=== PATIENT | female | born 1975 | race Caucasian/White ===

== ENCOUNTER 2016-05-12 02:03 | Emergency (ER) | payer BC ==
--- NOTE | 2016-05-12 03:15 | ED NURSING NOTES ---
Clinical Report - Nurses [facility] [address] [place] [address] 05/12/2016 2:06 Patient: TERESA CRANDALL TRIAGE Triage time 02:12. Acuity: LEVEL 4. Chief Complaint: RIGHT EAR PAIN. Alert. No acute distress. --02:17 ToncedB R.N. 02:12 05/12/16. BP: 119/83. HR: 84. RR: 16. O2 saturation: 98%. Temp: 98.0 F. Pain level now 0/10. --02:17 Tiffanie R.N. Weight: 72.5 kg. Height/Length: 70 inches. BMI: 22.9. --02:14 Tiffanie R.N. Allergies No Known Drug Allergy. --02:12 Tiffanie R.N. Albuterol. --02:13 Tiffanie R.N. History Arrived by private vehicle. Historian: patient. This started today. She has had a nasal discharge, a sore throat and a headache. 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 PAST MEDICAL HX: Immunizations: up-to-date. Last normal menstrual period- 1 for days. SOCIAL HX: Never smoker. No alcohol use or drug use. No infectious disease exposure. SELF HARM ASSESSMENT: A self harm assessment was performed. The patient answered "no" to the question "Have you recently felt down, depressed, or hopeless?", "Have you noticed less interest or pleasure in doing things?", "Do you have thoughts of harming or killing yourself?", "Are you here because you tried to hurt yourself?", "Have you ever tried to hurt yourself before today?", "Have you recently had thoughts about harming or killing others?" and "Do you have any dangerous items in your possession?". FALL RISK ASSESSMENT: Fall risk assessment completed. No fall risk identified. NUTRITIONAL RISK ASSESSMENT: The nutritional risk assessment revealed no deficiencies. FUNCTIONAL ASSESSMENT: Functional assessment: no impairments noted. LEARNING NEEDS ASSESSMENT: The learning needs assessment revealed no barriers. SKIN INTEGRITY ASSESSMENT: Skin integrity risk assessment completed. No skin integrity risk identified. --: Farhan Moreno PROBLEMS: Asthma. --: Michael Moreno. ADDITIONAL SURGERIES: Wrist. --02: Farhan Moreno Interventions ID band on patient. To treatment room. --: Farhan Moreno PHYSICAL ASSESSMENT GENERAL / NEURO / PSYCH: Alert. Appears in no acute distress. HEENT: No facial asymmetry noted. Pupils equal, round and reactive to light. EOM intact. Right ear within normal limits. Left ear within normal limits. Nares within normal limits. Pharynx within normal limits. RESPIRATORY: Respirations not labored. CVS: Capillary refill less than 2 seconds. SKIN: Skin is warm and dry. --: Farhan Moreno DISPOSITION / DISCHARGE Condition at departure: unchanged. No learning barriers present. Discharge instructions provided and reviewed with the patient. Reviewed medication(s) side effects, precautions, dosing and course information. Prescription(s) given to the patient. Patient verbalized understanding. Written instructions provided in Yi. The patient was discharged by the physician. She was discharged home. She left the Emergency Department ambulatory and via private vehicle. Patient driving. FALL RISK ASSESSMENT: Fall risk assessment completed. No fall risk identified. --03:24 Farhan Moreno 03:23 05/12/16. BP: deferred. HR: deferred. RR: deferred. O2 saturation: deferred. Temp: deferred. Pain level now: 0/10. --:24 Farhan Moreno Departure time: 03:24. --03:24 Farhan Moreno Locked/Released at 05/13/2016 19:58 by Farhan Moreno
--- NOTE | 2016-05-12 03:15 | ED CLINICAL REPORT ---
Clinical Report - Physicians/Mid Levels [facility] [address] [place] [address] 05/12/2016 2:06 Patient: TERESA CRANDALL Time Seen: 02:38. Arrived- By private vehicle. Historian- patient. HISTORY OF PRESENT ILLNESS Chief Complaint: EARACHE. Modifying factors- worsened by cough and swallowing. Not relieved by anything. This started about 2 hours ago and is still present. Onset during during asthma attack. Location- right ear. The pain is described as moderate. The patient has had ear pain and hearing loss. No ear drainage, sinus pressure, complaint of foreign body in the ear, ear trauma or recent barotrauma. No tinnitus, sore throat, toothache, jaw pain or facial pain. The patient has had nasal congestion and a nasal discharge. (Pt states that during her asthma attack, she suddenly developed a "plugged" feeling in her ear, and a sharp pain in that ear. Pt states this lasted about 2 hours, then slowly subsided. Now, pt states, somewhat decreased hearing is the only symptom.). Similar symptoms previously: None. Recent medical care: Not recently seen/assessed. REVIEW OF SYSTEMS No fever, chills, difficulty breathing, chest pain or headache. No eye discomfort, nausea, vomiting, diarrhea or abdominal pain. No difficulty with urination, skin rash, enlarged lymph nodes or joint pain. Has not had decreased oral intake. The patient has had a cough. Denies current . All systems otherwise negative, except as recorded above. PAST HISTORY Problems: Asthma. Additional Surgeries: Wrist. Allergies: Albuterol. No Known Drug Allergy. SOCIAL HISTORY Never smoker. No alcohol use or drug use. ADDITIONAL NOTES The nursing notes have been reviewed. PHYSICAL EXAM Vital Signs: 05/12/2016 02:12 BP: 119/83. HR: 84. RR: 16. O2 saturation: 98%. Temp: 98.0 F. Have been reviewed. Appearance: Alert. No acute distress. Eyes: Eyes normal inspection. Ear (right): There is dullness and bulging of the tympanic membrane and fluid behind the tympanic membrane. No tenderness of the auricle, pain with movement of the auricle or erythema of the tympanic membrane. Nose: Nose normal. Ear (left): Left ear normal. Left tympanic membrane normal. Neck: Normal inspection. Respiratory: No respiratory distress. Back: Normal inspection. Skin: Skin warm and dry. Normal skin color. Normal skin turgor. Extremities: Extremities exhibit normal ROM. No lower extremity edema. Neuro: Oriented X 3. No motor deficit. No sensory deficit. LABS, X-RAYS, AND EKG Pulse Oximetry: 05/12/2016 02:12 O2 saturation: 98%. (FIO2 - room air). Interpretation: normal. PROGRESS AND PROCEDURES Course of Care: d/w pt: No evidence of perforation or infection. Patient counseled in person regarding the patient's stable condition and diagnosis. Concerns were addressed. Old medical records reviewed. Disposition: Discharged. Not good. Unstable. CLINICAL IMPRESSION Acute right otalgia INSTRUCTIONS Drink plenty of fluids. (We do not have any decongestants in the ER. Please take the medication prescribed, as needed.). Warnings: GENERAL WARNINGS: Return or contact your physician immediately if your condition worsens or changes unexpectedly, if not improving as expected, or if other problems arise. OTC Medications: Sudafed 120 mg extended release tabs (available over the counter): take 1 tablet orally every day. Dispense ten (10). No refill. Substitution is permissible. (PRN congestion, ear pain and decreased hearing) Follow-up: Follow up with your doctor as needed. Understanding of the discharge instructions verbalized by patient. (Electronically signed by Bonnie Myers MD 05/12/2016 8:24)
--- NOTE | 2016-05-12 03:15 | ED NURSING NOTES ---
Clinical Report - Nurses [facility] [address] [place] [address] 05/12/2016 2:06 Patient: TERESA CRANDALL TRIAGE Triage time 02:12. Acuity: LEVEL 4. Chief Complaint: RIGHT EAR PAIN. Alert. No acute distress. --02:17 ToncedB R.N. 02:12 05/12/16. BP: 119/83. HR: 84. RR: 16. O2 saturation: 98%. Temp: 98.0 F. Pain level now 0/10. --02:17 Tiffanie R.N. Weight: 72.5 kg. Height/Length: 70 inches. BMI: 22.9. --02:14 Tiffanie R.N. Allergies No Known Drug Allergy. --02:12 Tiffanie R.N. Albuterol. --02:13 Tiffanie R.N. History Arrived by private vehicle. Historian: patient. This started today. She has had a nasal discharge, a sore throat and a headache. 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 PAST MEDICAL HX: Immunizations: up-to-date. Last normal menstrual period- 1 for days. SOCIAL HX: Never smoker. No alcohol use or drug use. No infectious disease exposure. SELF HARM ASSESSMENT: A self harm assessment was performed. The patient answered "no" to the question "Have you recently felt down, depressed, or hopeless?", "Have you noticed less interest or pleasure in doing things?", "Do you have thoughts of harming or killing yourself?", "Are you here because you tried to hurt yourself?", "Have you ever tried to hurt yourself before today?", "Have you recently had thoughts about harming or killing others?" and "Do you have any dangerous items in your possession?". FALL RISK ASSESSMENT: Fall risk assessment completed. No fall risk identified. NUTRITIONAL RISK ASSESSMENT: The nutritional risk assessment revealed no deficiencies. FUNCTIONAL ASSESSMENT: Functional assessment: no impairments noted. LEARNING NEEDS ASSESSMENT: The learning needs assessment revealed no barriers. SKIN INTEGRITY ASSESSMENT: Skin integrity risk assessment completed. No skin integrity risk identified. --: Farhan Moreno PROBLEMS: Asthma. --: Michael Moreno. ADDITIONAL SURGERIES: Wrist. --02: Farhan Moreno Interventions ID band on patient. To treatment room. --: Farhan Moreno PHYSICAL ASSESSMENT GENERAL / NEURO / PSYCH: Alert. Appears in no acute distress. HEENT: No facial asymmetry noted. Pupils equal, round and reactive to light. EOM intact. Right ear within normal limits. Left ear within normal limits. Nares within normal limits. Pharynx within normal limits. RESPIRATORY: Respirations not labored. CVS: Capillary refill less than 2 seconds. SKIN: Skin is warm and dry. --: Farhan Moreno DISPOSITION / DISCHARGE Condition at departure: unchanged. No learning barriers present. Discharge instructions provided and reviewed with the patient. Reviewed medication(s) side effects, precautions, dosing and course information. Prescription(s) given to the patient. Patient verbalized understanding. Written instructions provided in Turkmen. The patient was discharged by the physician. She was discharged home. She left the Emergency Department ambulatory and via private vehicle. Patient driving. FALL RISK ASSESSMENT: Fall risk assessment completed. No fall risk identified. --03:24 Farhan Moreno 03:23 05/12/16. BP: deferred. HR: deferred. RR: deferred. O2 saturation: deferred. Temp: deferred. Pain level now: 0/10. --:24 Farhan Moreno Departure time: 03:24. --03:24 Farhan Moreno Locked/Released at 05/13/2016 19:58 by Farhan Moreno
--- NOTE | 2016-05-13 19:59 | ED MAR SUMMARY ---
..... Medication Administration Record [facility] [address], [place] [id number] Patient: TERESA CRANDALL Visit ID: [id number] 40y, F Weight: 72.5 kg Height/Length: 70 in BMI: 22.9 ALLERGIES: Albuterol, No Known Drug Allergy
--- NOTE | 2016-05-13 19:59 | ED DISCHARGE INSTRUCTIONS ---
Patient: TERESA CRANDALL General Instructions [facility] VisitID: [id number] [place] [address] 40y, F Registration Date/Time: 05/12/2016 Acute right otalgia INSTRUCTIONS Drink plenty of fluids. (We do not have any decongestants in the ER. Please take the medication prescribed, as needed.). Warnings: GENERAL WARNINGS: Return or contact your physician immediately if your condition worsens or changes unexpectedly, if not improving as expected, or if other problems arise. OTC Medications: Sudafed 120 mg extended release tabs (available over the counter): take 1 tablet orally every day. Dispense ten (10). No refill. Substitution is permissible. (PRN congestion, ear pain and decreased hearing) Follow-up: Follow up with your doctor as needed. Understanding of the discharge instructions verbalized by patient. ADDITIONAL INFORMATION Fluid In The Middle Ear, No Infection (Adult) Earaches can happen without an infection. This can occur when air and fluid build up behind the eardrum causing pain and reduced hearing. This is called when you have a cold if congestion blocks the passage that drains the middle ear (eustachian tube). It may also occur with nasal allergies, gastric acid reflux (GERD), or after a bacterial middle ear infection. The pain may come and go. You may hear clicking or popping sounds when chewing or swallowing. You may feel that your balance is off. Or you may hear ringing in the ear. It often takes from several weeks up to three months for the fluid to clear on its own. Oral pain relievers and ear drops help with pain. Decongestants and antihistamines sometimes help. This condition does not respond to antibiotics since there is no infection. Your doctor may prescribe a nasal spray to help reduce swelling in the nose and eustachian tube. This can allow the ear to drain. If there has been no improvement after three months, surgery may be used to drain the fluid and insert a small tube in the eardrum to permit continued drainage. Because the middle ear fluid can become infected, it is important to watch for signs of an ear infection which may develop later. These signs include ear pain, fever, or drainage from the ear. Home Care: You may use acetaminophen (Tylenol) or ibuprofen (Motrin, Advil) to control pain, unless another medicine was prescribed. [NOTE: If you have chronic liver or kidney disease or ever had a stomach ulcer or GI bleeding, talk with your doctor before using these medicines.] (Aspirin should never be used in anyone under 18 years of age who is ill with a fever. It may cause severe liver damage.) You may use euih-[id number]-[id number] decongestants such as pseudoephedrine (Sudafed). You may use medications such as guaifenesin (Mucinex) to thin mucus and promote drainage. Follow Up with your doctor or as advised if you are not feeling better after three days. Get Prompt Medical Attention if any of the following occur: Ear pain gets worse or does not start to improve after three days of treatment Fever of 100.4F (38C) or higher, or as directed by your healthcare provider Fluid or blood draining from the ear Headache or sinus pain Stiff neck Unusual drowsiness or confusion You have been given the following additional information: Earache W/O Infection (Adult) (Electronically signed by Bonnie Myers MD 05/12/2016 8:24)
--- NOTE | 2016-05-13 19:59 | ED MED RECONCILIATION SUMMARY ---
Patient: TERESA CRANDALL Medication Reconciliation Report [facility] VisitID: [id number] [place] [address] 40y, F Registration Date/Time: 05/12/2016 Weight: 72.5 kg Height/Length: 70 in. BMI: 22.9 ALLERGIES: Albuterol, No Known Drug Allergy The patient's Home Medications are listed below: Not obtained. The source(s) of the original Home Medication information: Not obtained. The following Medications were given to the patient in the Emergency Department: None. The following Medications were prescribed to the patient: Sudafed 120 mg extended release tabs (available over the counter): take 1 tablet orally every day. Dispense ten (10). No refill. Substitution is permissible.(PRN congestion, ear pain and decreased hearing) -- Bonnie Myers MD
--- NOTE | 2016-05-13 19:59 | ED MED RECONCILIATION SUMMARY ---
Patient: TERESA CRANDALL Medication Reconciliation Report [facility] VisitID: [id number] [place] [address] 40y, F Registration Date/Time: 05/12/2016 Weight: 72.5 kg Height/Length: 70 in. BMI: 22.9 ALLERGIES: Albuterol, No Known Drug Allergy The patient's Home Medications are listed below: Not obtained. The source(s) of the original Home Medication information: Not obtained. The following Medications were given to the patient in the Emergency Department: None. The following Medications were prescribed to the patient: Sudafed 120 mg extended release tabs (available over the counter): take 1 tablet orally every day. Dispense ten (10). No refill. Substitution is permissible.(PRN congestion, ear pain and decreased hearing) -- Bonnie Myers MD
--- NOTE | 2016-05-13 19:59 | ED MAR SUMMARY ---
..... Medication Administration Record [facility] [address] [place], [place] [id number] Patient: TERESA CRANDALL Visit ID: [id number] 40y, F Weight: 72.5 kg Height/Length: 70 in BMI: 22.9 ALLERGIES: Albuterol, No Known Drug Allergy
== END 2016-05-12 03:20 | disposition home or self-care (01) ==
LOC: ED SRH 02:03
DX: H92.01 Otalgia, right ear (principal); Z88.8 Allergy status to other drugs, medicaments and biological substances